=== PATIENT | female | born 1980 | race Hispanic/Latino ===

== ENCOUNTER 2025-02-05 02:01 | Emergency (ER) | payer SELFPAY ==
[2025-02-05] MEDS ORDERED: TETRACAINE HCL 0.5% 4ML OPTH ONE (02:08)
[2025-02-05] MEDS ORDERED: FLUORESCEIN SODIUM 1 MG/WRAP ONE (02:08)
[2025-02-05] MEDS ORDERED: NA CHLORIDE 0.9% 1,000 ML ONE (02:54)
[2025-02-05] MEDS ORDERED: DIPHENHYDRAMINE 25 MG TAB/CAP ONE (02:54)
--- NOTE | 2025-02-05 03:05 | ER ---
Nurse's Notes [facility] Name: Lani Manriquez Age: 44 yrs Sex: Female : 1980 Arrival Date: 02/05/2025 Time: 02:01 Bed 14 Private MD: Diagnosis: Other acute conjunctivitis;Ocular pain, left eye;Ocular pain, right eye Presentation: 02/05 02:15 Coronavirus screen: Client denies travel out of the [place] in the last 14 days. Ebola ha1 Screen: No symptoms or risks identified at this time. Initial Sepsis Screen: Does the patient meet any 2 criteria? No. Patient's initial sepsis screen is negative. Does the patient have a suspected source of infection? No. Patient's initial sepsis screen is negative. Risk Assessment: Do you want to hurt yourself or someone else? Patient reports no desire to harm self or others. Onset of symptoms was February 04, 2025. 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 THE HOUSES br2 WERE VERY DIRTY, ROACHES, CAT/DOG HAIR, KLAUS. PT CAME HOME WASHED FACE AT APPROX 2030 BEGAN HAVING PAIN TO BILATERAL EYES, BURNING AND ITCHING, HURTS TO OPEN EYES. 02:17 Acuity: ANDRE 3 br2 Triage Assessment: 02:07 General: Appears uncomfortable, Behavior is calm, cooperative. Pain: Complains of pain ha1 in BURNING OF THE EYES Pain currently is 7 out of 10 on a pain scale. Quality of pain is described as aching. Neuro: Level of Consciousness is awake, alert, obeys commands, Oriented to person, place, time, situation. Cardiovascular: Capillary refill < 3 seconds Patient's skin is warm and dry. Respiratory: Airway is patent Respiratory effort is even, unlabored, Respiratory pattern is regular, symmetrical. GI: No signs and/or symptoms were reported involving the gastrointestinal system. Abdomen is round non-distended. : No signs and/or symptoms were reported regarding the genitourinary system. Derm: Skin is healthy with good turgor, Skin is moist, Skin is normal. Musculoskeletal: Circulation, motion, and sensation intact. Range of motion: intact in all extremities. Historical: - Allergies: 02:20 No Known Allergies; br2 - PSHx: 02:20 None; br2 - Immunization history:: Adult Immunizations up to date. - Infectious Disease History:: Denies. - Social history:: Smoking status: Patient denies any tobacco usage or history of. Patient/guardian denies using alcohol, street drugs. Screenin:14 [facility] ED Fall Risk Assessment (Adult) History of falling in the last 3 months, ha1 including since admission No falls in past 3 months (0 pts) Confusion or Disorientation No (0 pts) Intoxicated or Sedated No (0 pts) Impaired Gait No (0 pts) Mobility Assist Device Used No (0 pt) Altered Elimination No (0 pt) Score/Fall Risk Level 0 - 2 = Low Risk Oriented to surroundings, Maintained a safe environment, Assessed \T\ reinforced patient's understanding of fall precautions, Hourly rounding (assess needs \T\ fall precautionary measures) done. Abuse screen: Denies threats or abuse. Denies injuries from another. Nutritional screening: No deficits noted. Tuberculosis screening: No symptoms or risk factors identified. Assessment: 02:40 Reassessment: SEE TRIAGE ASSESSMENT. ha1 03:24 Reassessment: Patient and/or family updated on plan of care and expected duration. Pain ha1 level reassessed. Patient is alert, oriented x 3, equal unlabored respirations, skin warm/dry/pink. Patient states feeling better. Patient states symptoms have improved. Vital Signs: 02:17 BP 181 / 104; Pulse 85; Resp 18; Temp 97.3; Pulse Ox 100% ; Weight 57.61 kg; Height 5 br2 ft. 0 in. ; Pain 10/10; 03:25 BP 119 / 78; Pulse 67; Resp 18 S; Pulse Ox 100% on R/A; ha1 02:17 Body Mass Index 24.80 (57.61 kg, 152.4 cm) br2 02:17 Pain Scale: Adult br2 Visual Acuity: 03:24 Left Eye Visual acuity 20/20, ; Right Eye Visual acuity 20/20, ; Both Eyes Visual ha1 acuity 20/20; Without Lenses; ED Course: 02:03 Patient arrived in ED. mr 02:07 Patient has correct armband on for positive identification. Bed in low position. Call ha1 light in reach. Side rails up X 1. Adult w/ patient. 02:07 Provided Education on: EYE EXAM AND IRRIGATION . ha1 02:08 Bello Marquis DO is Attending Physician. tt7 02:13 Lucy Nation, RN is Primary Nurse. ha1 02:20 Triage completed. br2 02:20 Arm band placed on left wrist. br2 03:08 Jack Quick MD is Referral Physician. tt7 03:26 Patient did not have IV access during this emergency room visit. ha1 03:33 Assist provider with eye exam of both eyes. using fluorescein stain, Performed by [facility] Bello Marquis DO Patient tolerated well. Administered Medications: 02:40 Drug: Tetracaine Ophthalmic Drops 0.5 % 1 drops Ophthalmic once {Note: administered by [facility] Dr. Ramos .} Route: Ophthalmic; Site: both eyes; 02:40 Drug: Fluorescein Ophthalmic Strip 1 strip Ophthalmic once Route: Ophthalmic; Site: [facility] both eyes; 02:50 Drug: NS 0.9% IV 250 ml IV at bolus once; to be given as opthalmic flush {Note: RIGHT ha1 AND LEFT EYE.} Route: IV; Rate: bolus; Site: Other; 03:35 Follow up: Response: No adverse reaction; IV Status: Completed infusion ha1 03:00 Drug: diphenhydrAMINE PO 50 mg PO once Route: PO; ha1 03:35 Follow up: Response: No adverse reaction; Marked relief of symptoms ha1 03:35 Not Given (not in inventory ): Pataday Twice Daily Relief Drops 0.1 % 2 drops ha1 Ophthalmic once Medication: 03:24 VIS not applicable for this client. ha1 Outcome: 03:04 Discharge ordered by . tt7 03:34 Discharged to home ambulatory, with family, ha1 03:34 Condition: stable 03:34 Discharge instructions given to patient, Instructed on discharge instructions, follow up and referral plans. medication usage, Demonstrated understanding of instructions, follow-up care, medications, 03:36 Patient left the ED. ha1 Signatures: Danelle Hdez Reg Reg mr Lucy Nation, RN RN ha1 Heidi Martinez RN RN br2 Bello Marquis DO DO tt7
--- NOTE | 2025-02-05 03:05 | EDPHYS ---
Physician Documentation [facility] Name: Lani Manriquez Age: 44 yrs Sex: Female : 1980 Arrival Date: 02/05/2025 Time: 02:01 Bed 14 Private MD: ED Physician Bello Marquis HPI: 02/05 02:26 This 44 yrs old Female presents to ER via Wheelchair with complaints of Eye tt7 Problem. 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 Historical: - Allergies: 02:20 No Known Allergies; br2 - PSHx: 02:20 None; br2 - Immunization history:: Adult Immunizations up to date. - Infectious Disease History:: Denies. - Social history:: Smoking status: Patient denies any tobacco usage or history of. Patient/guardian denies using alcohol, street drugs. ROS: 02:24 Constitutional: negative for fever. Cardiovascular: negative for chest pain. tt7 Respiratory: negative for shortness of breath. Abdomen/GI: negative for abdominal pain, nausea, vomiting, diarrhea. MS/Extremity: negative for injury and deformity. Skin: negative for rash. Neuro: negative for focal weakness. 02:24 Eyes: Positive for pain, redness, tearing, Negative for vision loss, visual disturbance, Exam: 02:53 Visual Acuity: I have reviewed the nursing documentation. Visual acuity is within tt7 normal limits. 02:53 Constitutional: vital signs reviewed, well appearing. Head/Face: normocephalic, atraumatic. ENT: mucus membranes moist. Neck: trachea midline, no JVD, no meningismus. Cardiovascular: regular rate and rhythm, no lower extremity edema. Respiratory: normal respiratory effort, no accessory muscle use. Back: normal ROM. Skin: warm, dry, intact, normal turgor, normal color, no rash. MS/ Extremity: normal ROM of extremities, no gross deformities. Neuro: alert and oriented with appropriate mental status, normal speech, follows commands, no focal neurologic deficits. Psych: appropriate mood and affect. 02:53 Eyes: Periorbital structures: appear normal, no acute changes, Pupils: equal, round, and reactive to light and accomodation, Extraocular movements: intact throughout, Conjunctiva: injected, bilaterally, Corneas: abrasion, is not appreciated, foreign body, is not appreciated, a fluorescein strip employed to appreciate the findings, Sclera: no appreciated abnormality, Anterior chamber: normal, Lids and lashes: appear normal, bilaterally, Intraocular pressure: right eye = 19mmHg, left eye = 22mmHg, Vital Signs: 02:17 BP 181 / 104; Pulse 85; Resp 18; Temp 97.3; Pulse Ox 100% ; Weight 57.61 kg; Height 5 br2 ft. 0 in. ; Pain 10/10; 03:25 BP 119 / 78; Pulse 67; Resp 18 S; Pulse Ox 100% on R/A; ha1 02:17 Body Mass Index 24.80 (57.61 kg, 152.4 cm) br2 02:17 Pain Scale: Adult br2 Visual Acuity: 03:24 Left Eye Visual acuity 20/20, ; Right Eye Visual acuity 20/20, ; Both Eyes Visual ha1 acuity 20/20; Without Lenses; MDM: 02:08 Medical Screening Exam initiated tt7 02:25 Differential diagnosis: Corneal abrasion of both eyes. Corneal ulcer of both eyes. tt7 Foreign body in both eyes. Acute iritis of both eyes. Acute glaucoma in both eyes. Chemical conjunctivitis in both eyes. Allergic conjunctivitis in both eyes. Data reviewed: vital signs, nurses notes. 02:56 ED course: Exam is consistent with allergic conjunctivitis versus chemical tt7 conjunctivitis, visual acuity and intraocular pressure within normal limits, no foreign body or corneal ulcer/abrasion noted, will utilize normal saline to thoroughly flush bilateral eyes provide patient with follow-up with ophthalmology. 02/05 02:16 Order name: Visual Acuity; Complete Time: 03:23 tt7 Administered Medications: 02:40 Drug: Tetracaine Ophthalmic Drops 0.5 % 1 drops Ophthalmic once {Note: administered by ha1 Dr. Ramos .} Route: Ophthalmic; Site: both eyes; 02:40 Drug: Fluorescein Ophthalmic Strip 1 strip Ophthalmic once Route: Ophthalmic; Site: ha1 both eyes; 02:50 Drug: NS 0.9% IV 250 ml IV at bolus once; to be given as opthalmic flush {Note: RIGHT ha1 AND LEFT EYE.} Route: IV; Rate: bolus; Site: Other; 03:35 Follow up: Response: No adverse reaction; IV Status: Completed infusion ha1 03:00 Drug: diphenhydrAMINE PO 50 mg PO once Route: PO; ha1 03:35 Follow up: Response: No adverse reaction; Marked relief of symptoms ha1 03:35 Not Given (not in inventory ): Pataday Twice Daily Relief Drops 0.1 % 2 drops ha1 Ophthalmic once Disposition: 03:08 Co-signature as Attending Physician, Bello Marquis DO. tt7 Disposition Summary: 02/05/25 03:04 Discharge Ordered Notes: Location: Home tt7 Problem: new tt7 Symptoms: have improved tt7 Condition: Stable tt7 Diagnosis - Other acute conjunctivitis tt7 - Ocular pain, left eye tt7 - Ocular pain, right eye tt7 Followup: tt7 - With: Emergency Department - When: As needed - Reason: Followup: tt7 - With: Private Physician - When: 1 - 2 days - Reason: Recheck today's complaints, Re-evaluation by your physician Followup: tt7 - With: Jack Quick MD - When: Tomorrow - Reason: Recheck today's complaints Discharge Instructions: - Discharge Summary Sheet tt7 - Chemical Conjunctivitis, Adult, [id number] tt7 - Allergic Conjunctivitis, Adult, [id number] tt7 Forms: - Medication Reconciliation Form tt7 - Antibiotic Education tt7 - Prescription Opioid Use tt7 - Patient Portal Instructions tt7 - Leadership Thank You Letter tt7 Prescriptions: - Pataday Once Daily Relief 0.7 % Ophthalmic drops - instill 1 drop OPHTHALMIC route every 24 hours; 1 Unspecified; Refills: 0, tt7 Product Selection Permitted Signatures: Lucy Nation RN RN ha1 Heidi Martinez RN RN br2 Bello Marquis DO DO tt7
[2025-02-05 10:35] VITALS: TEMP 97.3; O2SAT 100
[2025-02-05 10:36] VITALS: BP 119/78
== END 2025-02-05 03:36 | disposition home or self-care (01) ==
LOC: ER 02:01
DX: H10.33 Unspecified acute conjunctivitis, bilateral (principal)
CPT/HCPCS: 96365; 99284; J7030